=== PATIENT | female | born 1995 | race Caucasian/White ===

== ENCOUNTER 2017-09-09 15:52 | Emergency (ER) | payer BC ==
[2017-09-09] MEDS ORDERED: Sodium Chloride 0.9% 2.5 ML Syringe FLUSH PRN (16:11)
[2017-09-09] MEDS ORDERED: Sodium Chloride 0.9% 10 ML Syringe FLUSH PRN (16:11)
[2017-09-09] MEDS ORDERED: Sodium Chloride 0.9% 1,000 ML IV STA (16:11)
[2017-09-09] MEDS ORDERED: Ondansetron 4 MG/2 ML SDV IVPUSH ONE ×2 (16:11→17:57)
--- NOTE | 2017-09-09 16:21 | EDM.PDOC ---
ED HPI GENERAL MEDICAL PROBLEM - General Chief Complaint: Gastrointestinal Problem Stated Complaint: abdominal pain Time Seen by Provider: 09/09/17 15:55 - History of Present Illness INITIAL COMMENTS - FREE TEXT/NARRATIVE: HISTORY AND PHYSICAL: History of present illness: Patient 21-year-old white female sensory concern of vomiting has been off and on for the last 7-10 days she's also some diarrhea she did see her primary medical doctor and had stool studies done. She's had no fever no chills she had some mild abdominal cramping denies other concern Review of systems: As per history of present illness and below otherwise all systems reviewed and negative. Past medical history: As per history of present illness and as reviewed below otherwise noncontributory. Surgical history: As per history of present illness and as reviewed below otherwise noncontributory. Social history: No reported history of drug or alcohol abuse. Family history: As per history of present illness and as reviewed below otherwise noncontributory. Physical exam: HEENT: Atraumatic, normocephalic, pupils reactive, negative for conjunctival pallor or scleral icterus, mucous membranes dry, throat clear, neck supple, nontender, trachea midline. Lungs: Clear to auscultation, breath sounds equal bilaterally, chest nontender. Heart: S1S2, regular, negative for clicks, rubs, or JVD. Abdomen: Soft, nondistended, nontender. Negative for masses or hepatosplenomegaly. Negative for costovertebral tenderness. Pelvis: Stable nontender. Genitourinary: Deferred. Rectal: Deferred. Extremities: Atraumatic, negative for cords or calf pain. Neurovascular unremarkable. Neuro: Awake, alert, oriented. Cranial nerves II through XII unremarkable. Cerebellum unremarkable. Motor and sensory unremarkable throughout. Exam nonfocal. Diagnostics: CBC CMP amylase lipase hCG UA Therapeutics: Saline 1 L bolus Zofran 4 mg IV Impression: #1 gastroenteritis #2 dehydration Definitive disposition and diagnosis as appropriate pending reevaluation and review of above. Middle Abdomen Pain Score (Numeric/FACES): 5 - Related Data Allergies Allergy/AdvReac Type Severity Reaction Status Date / Time amoxicillin [From Augmentin] Allergy Vomiting Verified 09/09/17 16:01 clavulanic acid Allergy Vomiting Verified 09/09/17 16:01 [From Augmentin] Home Meds: Home Meds Citalopram [Celexa] 20 mg PO DAILY 09/09/17 [History] Past Medical History Psychiatric History: Reports: Anxiety - Past Surgical History GI Surgical History: Reports: Cholecystectomy Social & Family History - Family History Family Medical History: Noncontributory - Tobacco Use Smoking Status *Q: Never Smoker Second Hand Smoke Exposure: No - Caffeine Use Caffeine Use: Reports: Coffee Caffeine Use Comment: 2 cups per day - Recreational Drug Use Recreational Drug Use: No ED ROS GENERAL - Review of Systems Review Of Systems: ROS reveals no pertinent complaints other than HPI. ED EXAM, GENERAL - Physical Exam Exam: See Below (see dictation) Course - Vital Signs Last Recorded V/S: Last Vital Signs Temp 36.1 C 09/09/17 16:01 Pulse 104 H 09/09/17 16:01 Resp 16 09/09/17 16:01 BP 138/81 09/09/17 16:01 Pulse Ox 97 09/09/17 16:01 - Orders/Labs/Meds Orders: Active Orders 24 hr Category Date Time Status Ondansetron [Zofran] Med 09/09/17 17:57 Once 4 mg IVPUSH ONETIME ONE Sodium Chloride 0.9% [Saline Flush] Med 09/09/17 16:11 Active 10 ml FLUSH ASDIRECTED PRN Sodium Chloride 0.9% [Saline Flush] Med 09/09/17 16:11 Active 2.5 ml FLUSH ASDIRECTED PRN Saline Lock Insert [OM.PC] Stat Oth 09/09/17 16:10 Ordered Medication Orders Sodium Chloride (Saline Flush) 10 ml FLUSH ASDIRECTED PRN PRN Reason: Keep Vein Open Last Admin: 09/09/17 16:30 Dose: 10 ml Sodium Chloride (Saline Flush) 2.5 ml FLUSH ASDIRECTED PRN PRN Reason: Keep Vein Open Last Admin: 09/09/17 16:30 Dose: 2.5 ml Labs: Laboratory Tests 09/09/17 09/09/17 09/09/17 Range/Units 16:16 16:16 16:16 WBC 9.22 (4.0-11.0) K/uL RBC 4.46 (4.30-5.90) M/uL Hgb 13.8 (12.0-16.0) g/dL Hct 40.1 (36.0-46.0) % MCV 89.9 (80.0-98.0) fL MCH 30.9 (27.0-32.0) pg MCHC 34.4 (31.0-37.0) g/dL RDW Std Deviation 38.6 (28.0-62.0) fl RDW Coeff of Alice 12 (11.0-15.0) % Plt Count 234 (150-400) K/uL MPV 10.00 (7.40-12.00) fL Neut % (Auto) 80.0 (48.0-80.0) % Lymph % (Auto) 13.6 L (16.0-40.0) % Beauregard % (Auto) 5.1 (0.0-15.0) % Eos % (Auto) 0.9 (0.0-7.0) % Baso % (Auto) 0.4 (0.0-1.5) % Neut # (Auto) 7.4 H (1.4-5.7) K/uL Lymph # (Auto) 1.3 (0.6-2.4) K/uL Beauregard # (Auto) 0.5 (0.0-0.8) K/uL Eos # (Auto) 0.1 (0.0-0.7) K/uL Baso # (Auto) 0.0 (0.0-0.1) K/uL Nucleated RBC % 0.0 /100WBC Nucleated RBCs # 0 K/uL Sodium 137 (136-146) mmol/L Potassium 4.1 (3.5-5.1) mmol/L Chloride 108 (98-110) mmol/L Carbon Dioxide 18 L (21-31) mmol/L BUN 13 (6.0-23.0) mg/dL Creatinine 0.7 (0.6-1.5) mg/dL Est Cr Clr Drug Dosing 98.86 mL/min Estimated GFR (MDRD) > 60.0 ml/min Glucose 99 (60-110) mg/dL Calcium 8.8 (8.8-10.8) mg/dL Total Bilirubin 0.7 (0.1-1.5) mg/dL AST 22 (5-40) IU/L ALT 15 (8-54) IU/L Alkaline Phosphatase 80 (40-150) Total Protein 7.8 (6.0-8.0) g/dL Albumin 4.4 (3.5-5.0) g/dL Globulin 3.4 (2.0-3.5) g/dL Albumin/Globulin Ratio 1.3 (1.3-2.8) Amylase 46 (10-90) U/L Lipase 44 (7-80) U/L HCG, Qual NEGATIVE (NEG) Urine Color Urine Appearance Urine pH (5.0-8.0) Ur Specific Driggs (1.001-1.035) Urine Protein (NEGATIVE) mg/dL Urine Glucose (UA) (NEGATIVE) mg/dL Urine Ketones (NEGATIVE) mg/dL Urine Occult Blood (NEGATIVE) Urine Nitrite (NEGATIVE) Urine Bilirubin (NEGATIVE) Urine Urobilinogen (<2.0) EU/dL Ur Leukocyte Esterase (NEGATIVE) Urine RBC (0-2/HPF) Urine WBC (0-5/HPF) Ur Epithelial Cells (NONE-FEW) Urine Bacteria (NEGATIVE) Urine Mucus (NONE-MOD) 09/09/17 Range/Units 17:05 WBC (4.0-11.0) K/uL RBC (4.30-5.90) M/uL Hgb (12.0-16.0) g/dL Hct (36.0-46.0) % MCV (80.0-98.0) fL MCH (27.0-32.0) pg MCHC (31.0-37.0) g/dL RDW Std Deviation (28.0-62.0) fl RDW Coeff of Alice (11.0-15.0) % Plt Count (150-400) K/uL MPV (7.40-12.00) fL Neut % (Auto) (48.0-80.0) % Lymph % (Auto) (16.0-40.0) % Beauregard % (Auto) (0.0-15.0) % Eos % (Auto) (0.0-7.0) % Baso % (Auto) (0.0-1.5) % Neut # (Auto) (1.4-5.7) K/uL Lymph # (Auto) (0.6-2.4) K/uL Beauregard # (Auto) (0.0-0.8) K/uL Eos # (Auto) (0.0-0.7) K/uL Baso # (Auto) (0.0-0.1) K/uL Nucleated RBC % /100WBC Nucleated RBCs # K/uL Sodium (136-146) mmol/L Potassium (3.5-5.1) mmol/L Chloride (98-110) mmol/L Carbon Dioxide (21-31) mmol/L BUN (6.0-23.0) mg/dL Creatinine (0.6-1.5) mg/dL Est Cr Clr Drug Dosing mL/min Estimated GFR (MDRD) ml/min Glucose (60-110) mg/dL Calcium (8.8-10.8) mg/dL Total Bilirubin (0.1-1.5) mg/dL AST (5-40) IU/L ALT (8-54) IU/L Alkaline Phosphatase (40-150) Total Protein (6.0-8.0) g/dL Albumin (3.5-5.0) g/dL Globulin (2.0-3.5) g/dL Albumin/Globulin Ratio (1.3-2.8) Amylase (10-90) U/L Lipase (7-80) U/L HCG, Qual (NEG) Urine Color YELLOW Urine Appearance SLT CLOUDY Urine pH 6.0 (5.0-8.0) Ur Specific Driggs >= 1.030 (1.001-1.035) Urine Protein NEGATIVE (NEGATIVE) mg/dL Urine Glucose (UA) NEGATIVE (NEGATIVE) mg/dL Urine Ketones NEGATIVE (NEGATIVE) mg/dL Urine Occult Blood TRACE-INTACT (NEGATIVE) Urine Nitrite NEGATIVE (NEGATIVE) Urine Bilirubin NEGATIVE (NEGATIVE) Urine Urobilinogen 0.2 (<2.0) EU/dL Ur Leukocyte Esterase NEGATIVE (NEGATIVE) Urine RBC 0-2 (0-2/HPF) Urine WBC 0-2 (0-5/HPF) Ur Epithelial Cells MODERATE (NONE-FEW) Urine Bacteria 1+ H (NEGATIVE) Urine Mucus HEAVY (NONE-MOD) Meds: Medications Generic Name Dose Route Start Last Admin Trade Name Freq PRN Reason Stop Dose Admin Sodium Chloride 10 ml 09/09/17 16:11 09/09/17 16:30 Saline Flush FLUSH 10 ml ASDIRECTED PRN Administration Keep Vein Open Sodium Chloride 2.5 ml 09/09/17 16:11 09/09/17 16:30 Saline Flush FLUSH 2.5 ml ASDIRECTED PRN Administration Keep Vein Open Discontinued Medications Generic Name Dose Route Start Last Admin Trade Name Heather PRN Reason Stop Dose Admin Sodium Chloride 1,000 mls @ 999 mls/hr 09/09/17 16:11 09/09/17 16:29 Normal Saline IV 09/09/17 17:11 999 mls/hr NOW STA Administration Ondansetron HCl 4 mg 09/09/17 16:11 09/09/17 16:29 Zofran IVPUSH 09/09/17 16:12 4 mg ONETIME ONE Administration Departure - Departure Time of Disposition: 17:58 Disposition: Home, Self-Care 01 Condition: Good Clinical Impression: Gastroenteritis, Dehydration, UTI (urinary tract infection) - Discharge Information Referrals: Huang Santana MD [Primary Care Provider] - Forms: ED Department Discharge Additional Instructions: The following information is given to patients seen in the emergency department who are being discharged to home. This information is to outline your options for follow-up care. We provide all patients seen in our emergency department with a follow-up referral. The need for follow-up, as well as the timing and circumstances, are variable depending upon the specifics of your emergency department visit. If you don't have a primary care physician on staff, we will provide you with a referral. We always advise you to contact your personal physician following an emergency department visit to inform them of the circumstance of the visit and for follow-up with them and/or the need for any referrals to a consulting specialist. The emergency department will also refer you to a specialist when appropriate. This referral assures that you have the opportunity for followup care with a specialist. All of these measure are taken in an effort to provide you with optimal care, which includes your followup. Under all circumstances we always encourage you to contact your private physician who remains a resource for coordinating your care. When calling for followup care, please make the office aware that this follow-up is from your recent emergency room visit. If for any reason you are refused follow-up, please contact the [facility] emergency department at and asked to speak to the emergency department charge nurse. Push fluids Zofran as prescribed Cipro as prescribed follow-up private medical doctor wanted today's return as needed as discussed - My Orders Last 24 Hours: My Active Orders 09/09/17 16:10 Saline Lock Insert [OM.PC] Stat 09/09/17 16:11 Sodium Chloride 0.9% [Saline Flush] 10 ml FLUSH ASDIRECTED PRN Sodium Chloride 0.9% [Saline Flush] 2.5 ml FLUSH ASDIRECTED PRN 09/09/17 17:57 Ondansetron [Zofran] 4 mg IVPUSH ONETIME ONE - Assessment/Plan Last 24 Hours: My Active Orders 09/09/17 16:10 Saline Lock Insert [OM.PC] Stat 09/09/17 16:11 Sodium Chloride 0.9% [Saline Flush] 10 ml FLUSH ASDIRECTED PRN Sodium Chloride 0.9% [Saline Flush] 2.5 ml FLUSH ASDIRECTED PRN 09/09/17 17:57 Ondansetron [Zofran] 4 mg IVPUSH ONETIME ONE
[2017-09-09 16:50] LABS: CHLORIDE,CL 108 mmol/L (98-110); SODIUM,NA 137 mmol/L (136-146)
== END 2017-09-09 18:30 | disposition home or self-care (01) ==
LOC: MW.ED 15:52
DX: K52.9 Noninfective gastroenteritis and colitis, unspecified (principal); E86.0 Dehydration; N39.0 Urinary tract infection, site not specified; F41.9 Anxiety disorder, unspecified; Z79.899 Other long term (current) drug therapy; Z88.1 Allergy status to other antibiotic agents
CPT/HCPCS: 36415; 80053; 81001; 82150; 83690; 84703; 85025; 87804; 96361; 96374; 99284; J2405; J7040; 96375

== ENCOUNTER 2019-03-17 05:02 | Inpatient (IN) | payer BC ==
[2019-03-17] MEDS ORDERED: Misoprostol 200 MCG Tab PO PRN (05:47)
[2019-03-17] MEDS ORDERED: Water For Irrigation,Sterile 1,000 ML Container IRR PRN (05:47)
[2019-03-17] MEDS ORDERED: Lidocaine 1% 50 ML MDV INJECT PRN (05:47)
[2019-03-17] MEDS ORDERED: Methylergonovine 0.2 MG/1 ML Amp IM PRN (05:47)
[2019-03-17] MEDS ORDERED: Carboprost Tromethamine 250 MCG/1 ML Amp IM PRN (05:47)
[2019-03-17] MEDS ORDERED: Tranexamic Acid 1,000 MG in Sodium Chloride 0.9% 100 ML IV PRN (05:47)
[2019-03-17] MEDS ORDERED: Terbutaline 1 MG/ML SDV SUBCUT PRN (05:47)
[2019-03-17] MEDS ORDERED: Ondansetron 4 MG/2 ML SDV IVPUSH PRN (05:47)
[2019-03-17] MEDS ORDERED: Butorphanol 1 MG/ML SDV IVPUSH PRN (05:47)
[2019-03-17] MEDS ORDERED: Sodium Chloride 0.9% 10 ML Syringe FLUSH PRN (05:47)
[2019-03-17] MEDS ORDERED: Sodium Chloride 0.9% 10 ML SDV IV PRN (05:47)
[2019-03-17] MEDS ORDERED: Lactated Ringers 1,000 ML IV SCH (06:00)
[2019-03-17] MEDS ORDERED: Oxytocin/0.9 % Sodium Chloride 30 UNIT/500 ML BAG IV SCH ×2 (06:00)
[2019-03-17] MEDS: Acetaminophen 500 MG Tab PO PRN (07:40)
[2019-03-17] MEDS ORDERED: fentaNYL 100 MCG/2 ML SDV ONE (10:48)
--- NOTE | 2019-03-17 11:25 | PCM.PREANE ---
Preanesthetic Assessment - Anesthesia/Transfusion/Family Hx Anesthesia History: Prior Anesthesia Without Reaction Family History of Anesthesia Reaction: No Intubation History: Unknown - Review of Systems General: No Symptoms Pulmonary: No Symptoms Cardiovascular: No Symptoms Gastrointestinal: No Symptoms Neurological: No Symptoms Other: Reports: None - Physical Assessment Height: 5 ft 2 in Weight: 90.718 kg - Lab Values: Laboratory Last Values WBC 9.74 K/uL (4.0-11.0) 03/17/19 06:00 RBC 3.81 M/uL (4.30-5.90) L 03/17/19 06:00 Hgb 11.7 g/dL (12.0-16.0) L 03/17/19 06:00 Hct 35.2 % (36.0-46.0) L 03/17/19 06:00 MCV 92.4 fL (80.0-98.0) 03/17/19 06:00 MCH 30.7 pg (27.0-32.0) 03/17/19 06:00 MCHC 33.2 g/dL (31.0-37.0) 03/17/19 06:00 RDW Std Deviation 43.3 fl (28.0-62.0) 03/17/19 06:00 RDW Coeff of Alice 13 % (11.0-15.0) 03/17/19 06:00 Plt Count 179 K/uL (150-400) 03/17/19 06:00 MPV 9.60 fL (7.40-12.00) 03/17/19 06:00 Nucleated RBC % 0.0 /100WBC 03/17/19 06:00 Nucleated RBCs # 0 K/uL 03/17/19 06:00 POC Glucose 78 mg/dL (60-110) 03/17/19 10:31 Blood Type A POSITIVE 03/17/19 06:00 Antibody Screen NEGATIVE 03/17/19 06:00 - Allergies Allergies/Adverse Reactions: Allergies Allergy/AdvReac Type Severity Reaction Status Date / Time amoxicillin [From Augmentin] Allergy Vomiting Verified 09/09/17 16:01 amoxicillin trihydrate Allergy Vomiting Verified 08/30/16 14:13 [From Augmentin] clavulanic acid Allergy Vomiting Verified 09/09/17 16:01 [From Augmentin] potassium clavulanate Allergy Vomiting Verified 08/30/16 14:13 [From Augmentin] - Blood Blood Available: No - Anesthesia Plan Pre-Op Medication Ordered: None - Acknowledgements Anesthesia Type Planned: Epidural Pt an Appropriate Candidate for the Planned Anesthesia: Yes Alternatives and Risks of Anesthesia Discussed w Pt/Guardian: Yes Pt/Guardian Understands and Agrees with Anesthesia Plan: Yes PreAnesthesia Questionnaire - Past Health History Medical/Surgical History: Denies Medical/Surgical History Gastrointestinal History: Reports: Other (See Below) Other Gastrointestinal History: ulcerative colitis 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 [No Known Home Meds] 08/30/16 [History] Citalopram [Celexa] 20 mg PO DAILY 09/09/17 [History] - CURRENT (IN HOUSE) MEDS Current Meds: Current Medications Acetaminophen (Tylenol Extra Strength) 1,000 mg PO Q6H PRN PRN Reason: headache Last Admin: 03/17/19 07:40 Dose: 1,000 mg Butorphanol Tartrate (Stadol) 1 mg IVPUSH ASDIRECTED PRN PRN Reason: Pain Last Admin: 03/17/19 10:15 Dose: 1 mg Carboprost Tromethamine (Hemabate Ds) 250 mcg IM ASDIRECTED PRN PRN Reason: Post Hemorrhage Lactated Ringer's (Ringers, Lactated) 1,000 mls @ 150 mls/hr IV ASDIRECTED ANDIE Last Admin: 03/17/19 06:10 Dose: 150 mls/hr Oxytocin/Sodium Chloride (Oxytocin 30 Unit/500 Ml-Ns) 30 unit in 500 mls @ 999 mls/hr IV TITRATE ANDIE Oxytocin/Sodium Chloride (Oxytocin 30 Unit/500 Ml-Ns) 30 unit in 500 mls @ 2 mls/hr IV TITRATE ANDIE; Protocol Last Titration: 03/17/19 09:20 Dose: 8 munits/min, 8 mls/hr Tranexamic Acid 1,000 mg/ (Sodium Chloride) 110 mls @ 660 mls/hr IV ONETIME PRN PRN Reason: Bleeding Lidocaine HCl (Xylocaine 1%) 50 ml INJECT ONETIME PRN PRN Reason: Laceration repair Methylergonovine Maleate (Methergine) 0.2 mg IM ASDIRECTED PRN PRN Reason: Post Hemorrhage Misoprostol (Cytotec) 200 mcg PO ONETIME PRN PRN Reason: Post Hemorrhage Ondansetron HCl (Zofran) 4 mg IVPUSH Q6H PRN PRN Reason: Nausea/Vomiting Sodium Chloride (Saline Flush) 10 ml FLUSH ASDIRECTED PRN PRN Reason: Keep Vein Open Sodium Chloride (Normal Saline) 10 ml IV ASDIRECTED PRN PRN Reason: IV Use Sterile Water (Sterile Water For Irrigation) 1,000 ml IRR ASDIRECTED PRN PRN Reason: delivery Terbutaline Sulfate (Brethine) 0.25 mg SUBCUT ASDIRECTED PRN PRN Reason: Tacysystole Discontinued Medications Fentanyl (Sublimaze) Confirm Administered Dose 100 mcg .ROUTE .STK-MED ONE Stop: 03/17/19 10:49 Fentanyl/Bupivacaine HCl ([id number] 2 Mcg/Ml-0.125%) Confirm Administered Dose 100 mls @ as directed .ROUTE .STK-MED ONE Stop: 03/17/19 10:50
[2019-03-17] MEDS ORDERED: Bisacodyl 10 MG Supp RECTAL PRN (13:39)
[2019-03-17] MEDS ORDERED: Benzocaine/Menthol 20%-0.5% Spray 78 GM Cannister TOP PRN (13:39)
[2019-03-17] MEDS ORDERED: Ibuprofen 400 MG Tab PO PRN (13:39)
[2019-03-17] MEDS ORDERED: oxyCODONE 5 MG Tab PO PRN (13:39)
[2019-03-17] MEDS ORDERED: Aluminum Hydroxide/Magnesium Hydroxide/Simethicone Susp 30 ML Cup PO PRN (13:39)
[2019-03-17] MEDS ORDERED: Witch Hazel Medicated Pads 40/Jar TOP PRN (13:39)
[2019-03-17] MEDS ORDERED: Lanolin 100% Cream 7 GM Tube TOP PRN (13:39)
[2019-03-17] MEDS ORDERED: Acetaminophen 500 MG Tab PO PRN ×2 (13:39)
--- NOTE | 2019-03-17 13:47 | PCM.OPNOTE ---
- General Post-Op/Procedure Note Date of Surgery/Procedure: 03/17/19 Operative Procedure(s): /1st laceration repaired Findings: Viable female APGARs 9, 9 weight 3230gm. Spontaneous delivery intact placenta with 3V cord. Accessory lobe noted with placenta, to path. Pre Op Diagnosis: 39 week IUP. Gestational diabetes. renal unilateral pylectasis Post-Op Diagnosis: Same Anesthesia Technique: Epidural Primary Surgeon: Daksha Grey Pathology: Placenta EBL in mLs: 300 Complications: none known Condition: Good Free Text/Narrative:: Dictation [id number]
--- NOTE | 2019-03-17 14:20 | OR ---
SURGEON: Daksha Grey M.D. DATE OF PROCEDURE: 03/17/2019 PREOPERATIVE DIAGNOSES: 1. 39 weeks' intrauterine . 2. Gestational diabetes. 3. unilateral pyelectasis. POSTOPERATIVE DIAGNOSES: 1. 39 weeks' intrauterine . 2. Gestational diabetes. 3. unilateral pyelectasis. PROCEDURE: Spontaneous vaginal delivery, first-degree laceration repaired. PRIMARY SURGEON: Daksha Grey MD. ANESTHESIA: Epidural. ESTIMATED BLOOD LOSS: 300 mL. FINDINGS: Viable female. scores 9 at 1 minute, 9 at 5 minutes. Weight of 3230 g. Spontaneous delivery, intact placenta, 3-vessel cord. A succenturiate lobe is noted to be present with placental tissue. DISPOSITION: The patient in LDRP, stable. Infant to nursery. PROCEDURE DETAILS: Manas is a 23-year-old G2, P1, at 39 weeks' gestational age, who presents for scheduled induction of labor due to gestational diabetes. On initial exam, the patient was found to be 2 to 3 cm, 60% effaced, -3 station. Was admitted, routine labs drawn, IV hydration initiated. Initial glucose was 93. The patient responded nicely to Pitocin and shortly before 9 a.m. underwent amniotomy as she is group B strep negative. She is found to be 3 cm, 70% effaced, -2 station. Clear fluid was returned. The patient became increasingly uncomfortable and was progressing more rapidly at this point, therefore, underwent regional anesthesia in the form of epidural, became more comfortable. Shortly after noon, she was found to be 8 to 9 cm, 100% effaced, +1 station, feeling some pressure and within the hour progressed to complete, 100% effaced, + 3 station. I was called for delivery. Upon my arrival, the patient was placed in modified dorsal lithotomy position, was prepped and draped in the usual aseptic manner. With the next 3 contractions, was able to push, deliver infant's head atraumatically and spontaneously, followed by anterior shoulder, posterior shoulder, and remaining body without difficulty. The infant's oropharynx and nares were bulb suctioned. Infant was handed off to her mother with attending nursing staff at the side. After delay, cord was clamped x2 and cut. Cord arterial, cord venous, cord blood sampling obtained. Light suprapubic pressure was applied while the placenta was delivered spontaneously intact. The succenturiate lobe was noted to be present within this placental tissue. Vigorous fundal uterine massage was then applied while 30 units of Pitocin was delivered in 500 mL of IV fluid. Upon inspection of cervix, vaginal sidewalls, and perineum, they were was found to be intact other than a first-degree right rodrigo-clitoral laceration. Was repaired using 4-0 Vicryl on a V20 needle. Uterus remained firm. Hemostasis evident. Sponge count, instrument count, and needle count were correct. The patient will remain in LDRP, infant to nursery. KEATON / CARLOS /[id number] JAMEY
[2019-03-17] MEDS: Docusate Sodium 100 MG Cap PO PRN (15:24)
[2019-03-17] MEDS: Ibuprofen 800 MG Tab PO PRN ×2 (15:24→23:31)
[2019-03-18] MEDS: Acetaminophen 500 MG Tab PO PRN (05:25)
--- NOTE | 2019-03-18 08:55 | PCM48HPAN ---
Post Anesthesia Note - EVALUATION WITHIN 48HRS OF ANESTHETIC Vital Signs in Normal Range: Yes Patient Participated in Evaluation: Yes Respiratory Function Stable: Yes Airway Patent: Yes Cardiovascular Function Stable: Yes Hydration Status Stable: Yes Pain Control Satisfactory: Yes Nausea and Vomiting Control Satisfactory: Yes Mental Status Recovered: Yes Pulse Rate: 71 SaO2: 97 Resp Rate: 17 Temperature: 97.8 F Blood Pressure: 104/61
--- NOTE | 2019-03-18 10:13 | PCM.PNPP ---
- General Info Date of Service: 03/18/19 Functional Status: Reports: Pain Controlled, Tolerating Diet, Ambulating, Urinating - Review of Systems General: Reports: Fatigue. Denies: Fever, Weakness Pulmonary: Denies: Shortness of Breath Cardiovascular: Denies: Chest Pain, Palpitations, Lightheadedness Gastrointestinal: Denies: Abdominal Pain, Nausea, Vomiting Genitourinary: Denies: Flank Pain Musculoskeletal: Reports: No Symptoms Skin: Reports: No Symptoms Neurological: Reports: No Symptoms Psychiatric: Reports: No Symptoms - General Info Date of Service: 03/18/19 - Patient Data Vital Signs - Most Recent: Last Vital Signs Temp 36.6 C 03/18/19 08:55 Pulse 71 03/18/19 08:55 Resp 17 03/18/19 08:55 BP 104/61 03/18/19 08:55 Pulse Ox 97 03/18/19 08:55 Weight - Most Recent: 90.718 kg Lab Results - Last 24 Hours: Laboratory Results - last 24 hr 03/17/19 03/17/19 03/17/19 Range/Units 06:09 10:31 13:22 Hgb (12.0-16.0) g/dL Hct (36.0-46.0) % Cord ABG pH 7.320 (7.18-7.38) Cord ABG Base Excess -7 (-10--2) Cord VBG pH 7.328 (7.25-7.45) Cord VBG Base Excess -7 (-10--2) POC Glucose 96 78 (60-110) mg/dL Fasting Glucose (74-106) mg/dL 03/18/19 03/18/19 Range/Units 05:49 05:49 Hgb 11.6 L (12.0-16.0) g/dL Hct 35.1 L (36.0-46.0) % Cord ABG pH (7.18-7.38) Cord ABG Base Excess (-10--2) Cord VBG pH (7.25-7.45) Cord VBG Base Excess (-10--2) POC Glucose (60-110) mg/dL Fasting Glucose 83 (74-106) mg/dL Med Orders - Current: Current Medications Acetaminophen (Tylenol Extra Strength) 1,000 mg PO Q6H PRN PRN Reason: headache Last Admin: 03/18/19 05:25 Dose: 1,000 mg Acetaminophen (Tylenol Extra Strength) 500 mg PO Q4H PRN PRN Reason: Pain Acetaminophen (Tylenol Extra Strength) 1,000 mg PO Q4H PRN PRN Reason: Pain Last Admin: 03/17/19 18:19 Dose: 1,000 mg Al Hydroxide/Mg Hydroxide (Mag-Al Plus) 30 ml PO Q8H PRN PRN Reason: Heartburn Benzocaine/Menthol (Dermoplast Pain Relief 20%-0.5% [place]) 78 gm TOP ASDIRECTED PRN PRN Reason: Perineal Comfort Measure Last Admin: 03/17/19 15:24 Dose: 1 spray Bisacodyl (Dulcolax) 10 mg RECTAL ONETIME PRN PRN Reason: Constipation Carboprost Tromethamine (Hemabate Ds) 250 mcg IM ASDIRECTED PRN PRN Reason: Post Hemorrhage Docusate Sodium (Colace) 100 mg PO BID PRN PRN Reason: Constipation Last Admin: 03/17/19 15:24 Dose: 100 mg Emollient Ointment (Lansinoh Hpa) 0 gm TOP ASDIRECTED PRN PRN Reason: Sore Nipples Last Admin: 03/17/19 15:23 Dose: 1 applic Lactated Ringer's (Ringers, Lactated) 1,000 mls @ 150 mls/hr IV ASDIRECTED ANDIE Last Admin: 03/17/19 06:10 Dose: 150 mls/hr Oxytocin/Sodium Chloride (Oxytocin 30 Unit/500 Ml-Ns) 30 unit in 500 mls @ 999 mls/hr IV TITRATE ANDIE Oxytocin/Sodium Chloride (Oxytocin 30 Unit/500 Ml-Ns) 30 unit in 500 mls @ 2 mls/hr IV TITRATE ANDIE; Protocol Last Titration: 03/17/19 11:25 Dose: 10 munits/min, 10 mls/hr Tranexamic Acid 1,000 mg/ (Sodium Chloride) 110 mls @ 660 mls/hr IV ONETIME PRN PRN Reason: Bleeding Ibuprofen (Motrin) 400 mg PO Q4H PRN PRN Reason: Pain Ibuprofen (Motrin) 800 mg PO Q6H PRN PRN Reason: Pain Last Admin: 03/17/19 23:31 Dose: 800 mg Methylergonovine Maleate (Methergine) 0.2 mg IM ASDIRECTED PRN PRN Reason: Post Hemorrhage Ondansetron HCl (Zofran) 4 mg IVPUSH Q6H PRN PRN Reason: Nausea/Vomiting Oxycodone HCl (Oxycodone) 5 mg PO Q2H PRN PRN Reason: Pain Sodium Chloride (Saline Flush) 10 ml FLUSH ASDIRECTED PRN PRN Reason: Keep Vein Open Sodium Chloride (Normal Saline) 10 ml IV ASDIRECTED PRN PRN Reason: IV Use Sterile Water (Sterile Water For Irrigation) 1,000 ml IRR ASDIRECTED PRN PRN Reason: delivery Witeloina Luther (Tucks) 1 pad TOP ASDIRECTED PRN PRN Reason: comfort care Last Admin: 03/17/19 15:25 Dose: 1 disk Discontinued Medications Butorphanol Tartrate (Stadol) 1 mg IVPUSH ASDIRECTED PRN PRN Reason: Pain Last Admin: 03/17/19 10:15 Dose: 1 mg Fentanyl (Sublimaze) Confirm Administered Dose 100 mcg .ROUTE .STK-MED ONE Stop: 03/17/19 10:49 Fentanyl/Bupivacaine HCl (Hbybjryu-Wkwtr-Bm 2 Mcg/Ml-0.125%) Confirm Administered Dose 100 mls @ as directed .ROUTE .STK-MED ONE Stop: 03/17/19 10:50 Lidocaine HCl (Xylocaine 1%) 50 ml INJECT ONETIME PRN PRN Reason: Laceration repair Misoprostol (Cytotec) 200 mcg PO ONETIME PRN PRN Reason: Post Hemorrhage Terbutaline Sulfate (Brethine) 0.25 mg SUBCUT ASDIRECTED PRN PRN Reason: Tacysystole - Interaction Support Person: - Recovery Exam Fundal Tone: Firm Fundal Level: At Umbilicus Fundal Placement: Midline Lochia Amount: Small Lochia Color: Rubra/Red Perineum Description: Intact, Minimal Bruising/Swelling Episiotomy/Laceration: Approximated Bladder Status: Voiding Urinary Elimination: Voided - Exam General: Alert, Oriented Lungs: Normal Respiratory Effort Cardiovascular: Regular Rate, Regular Rhythm GI/Abdominal Exam: Soft, Non-Tender Extremities: Pedal Edema (trace). No: Adán's Sign Skin: Warm, Dry, Intact Neurological: No New Focal Deficit Psy/Mental Status: Alert, Normal Affect, Normal Mood - Problem List & Annotations (1) Vaginal delivery SNOMED Code(s): 351864887 Code(s): O80 - ENCOUNTER FOR FULL-TERM UNCOMPLICATED DELIVERY Status: Acute Current Visit: Yes - Problem List Review Problem List Initiated/Reviewed/Updated: Yes - My Orders Last 24 Hours: My Active Orders 03/17/19 13:39 Patient Status [ADT] Routine May Shower [RC] ASDIRECTED Up ad Lindy [RC] ASDIRECTED Vital Signs [RC] PER UNIT ROUTINE Acetaminophen [Tylenol Extra Strength] 1,000 mg PO Q4H PRN Acetaminophen [Tylenol Extra Strength] 500 mg PO Q4H PRN Alum Hydrox/Mag Hydrox/Simeth [Mag-Al Plus] 30 ml PO Q8H PRN Benzocaine/Menthol [Dermoplast Pain Relief 20%-0.5% [place]] 78 gm TOP ASDIRECTED PRN Bisacodyl [Dulcolax] 10 mg RECTAL ONETIME PRN Docusate Sodium [Colace] 100 mg PO BID PRN Ibuprofen [Motrin] 400 mg PO Q4H PRN Ibuprofen [Motrin] 800 mg PO Q6H PRN Lanolin [Lansinoh HPA] See Dose Instructions TOP ASDIRECTED PRN Witch Homa [Tucks] 1 pad TOP ASDIRECTED PRN oxyCODONE 5 mg PO Q2H PRN Assess Lochia [WOMSER] Per Unit Routine Assess Uterine Involution [WOMSER] Per Unit Routine Peripheral IV Discontinue [OM.PC] Routine 03/17/19 13:40 Ice Therapy [OM.PC] Per Unit Routine Perineal Care [OM.PC] Per Unit Routine Sitz Bath [OM.PC] Per Unit Routine 03/17/19 Lunch Regular Diet [DIET] 03/18/19 10:11 Ready for Discharge [RC] PER UNIT ROUTINE - Assessment Assessment:: PPD 1 status post Gestational diabetes, normal fasting glucose - Plan Plan:: Patient is doing well and would like to go home today. Discharge to home. Follow up at [facility] 6 weeks. Needs 75 gm GTT at PP visit. Discharge instructions reviewed.
[2019-03-18] MEDS: Ibuprofen 800 MG Tab PO PRN (12:09)
[2019-03-18] MEDS: Docusate Sodium 100 MG Cap PO PRN (12:12)
== END 2019-03-18 15:58 | disposition home or self-care (01) | DRG 560 ==
LOC: MW.OBCHECK 05:02 → MW.OB 05:03 → MW.OBCHECK 05:47 → OBSVTOIN 13:22 → MW.OB 18:30
PROVIDERS: ADMIT Obstetrics & Gynecology; ATTEND Obstetrics & Gynecology
PROC: 10E0XZZ Delivery of Products of Conception, External Approach (ICD-10-PCS; principal; 2019-03-17)
PROC: 0HQ9XZZ Repair Perineum Skin, External Approach (ICD-10-PCS; 2019-03-17)
DX: O24.410 Gestational diabetes mellitus in pregnancy, diet controlled (principal); O99.344 Other mental disorders complicating childbirth; F41.9 Anxiety disorder, unspecified; O70.0 First degree perineal laceration during delivery; Z37.0 Single live birth; Z3A.39 39 weeks gestation of pregnancy
CPT/HCPCS: 36415; 59025; 59409; 82803; 82947; 82962; 85014; 85018; 85027; 86850; 86900; 86901; A9270-GY; J0595; J2590; J3010; J7120

== ENCOUNTER 2019-06-15 19:42 | Emergency (ER) | payer BC ==
--- NOTE | 2019-06-15 20:46 | EDM.PDOC ---
ED HPI GENERAL MEDICAL PROBLEM - General Chief Complaint: Lower Extremity Injury/Pain Stated Complaint: PT HURT LT LEG Time Seen by Provider: 06/15/19 20:24 - History of Present Illness INITIAL COMMENTS - FREE TEXT/NARRATIVE: HISTORY AND PHYSICAL: History of present illness: The patient is a 23-year-old female who presents with complaints of pain to her lateral left ankle after she rolled it getting out of a car. She did not fall down and hit her head pass out or blackout and has no head neck or back pain and only complains of pain and swelling at the left ankle. She took some ibuprofen at home prior to coming here. She has no proximal leg or knee pain and no hip pain on the left. She has no numbness or tingling in the foot. Her only breast-feeding. Review of systems: As per history of present illness and below otherwise all systems reviewed and negative. Past medical history: As per history of present illness and as reviewed below otherwise noncontributory. Surgical history: As per history of present illness and as reviewed below otherwise noncontributory. Social history: No reported history of drug or alcohol abuse. Family history: As per history of present illness and as reviewed below otherwise noncontributory. Physical exam: General: Well developed well-nourished mildly overweight female who is nontoxic and vital signs are noted by me HEENT: Atraumatic, normocephalic, negative for conjunctival pallor or scleral icterus, mucous membranes moist, throat clear, neck supple, nontender, trachea midline. There is no scalp defects or deformities and no midline step-offs tenderness defects of the cervical spine Lungs: Clear to auscultation, breath sounds equal bilaterally, chest nontender. Heart: S1S2, regular rate and rhythm no overt murmurs Abdomen: Deferred Pelvis: Stable nontender. No lateral hip tenderness on the left Genitourinary: Deferred. Rectal: Deferred. Extremities: Atraumatic, range of motion of all extremities with the exception of the left ankle with there is soft tissue swelling and tenderness at the lateral malleolus. There is no distal foot metatarsal toe calcaneus or talus tenderness and no medial malleolus tenderness. There is no proximal tib-fib knee thigh or hip pain. Neurovascular unremarkable. Neuro: Awake, alert, oriented. Cranial nerves II through XII unremarkable. Cerebellum unremarkable. Motor and sensory unremarkable throughout. Exam nonfocal. Diagnostics: X-ray left ankle Therapeutics: Ice pack ortho boot crutches She took Motrin prior to coming to the ED Impression: left Ankle injury Definitive disposition and diagnosis as appropriate pending reevaluation and review of above. Left Ankle Pain Score (Numeric/FACES): 6 - Related Data Allergies Allergy/AdvReac Type Severity Reaction Status Date / Time amoxicillin [From Augmentin] Allergy Vomiting Verified 06/15/19 20:26 amoxicillin trihydrate Allergy Vomiting Verified 06/15/19 20:26 [From Augmentin] clavulanic acid Allergy Vomiting Verified 06/15/19 20:26 [From Augmentin] potassium clavulanate Allergy Vomiting Verified 06/15/19 20:26 [From Augmentin] Home Meds: Home Meds . 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: Psychiatric History: Reports: Anxiety Endocrine/Metabolic History: Reports: Diabetes, Gestational Hematologic History: Reports: Anemia - Infectious Disease History Infectious Disease History: Reports: Chicken Pox - Past Surgical History GI Surgical History: Reports: Cholecystectomy Social & Family History - Family History Family Medical History: Noncontributory Cardiac: Reports: Hypertension : Reports: Renal Calculus Musculoskeletal: Reports: Arthritis Endocrine/Metabolic: Reports: Diabetes, type II Oncologic: Reports: Skin - Tobacco Use Smoking Status *Q: Never Smoker Second Hand Smoke Exposure: No - Caffeine Use Caffeine Use: Reports: Coffee Caffeine Use Comment: 2 cups per day - Recreational Drug Use Recreational Drug Use: No Review of Systems - Review of Systems Review Of Systems: ROS reveals no pertinent complaints other than HPI. ED EXAM, GENERAL - Physical Exam Exam: See Below (See dictation) Course - Vital Signs Last Recorded V/S: Last Vital Signs Temp 36.1 C 06/15/19 20:26 Pulse 80 06/15/19 20:26 Resp 16 06/15/19 20:26 BP 103/65 06/15/19 20:26 Pulse Ox 97 06/15/19 20:26 - Orders/Labs/Meds Orders: Active Orders 24 hr Category Date Time Status DME for Discharge [COMM] Stat Oth 06/15/19 22:05 Ordered Departure - Departure Time of Disposition: 22:05 Disposition: Home, Self-Care 01 Condition: Good Clinical Impression: Ankle injury Qualifiers: Encounter type: initial encounter Laterality: left Qualified Code(s): S99.912A - Unspecified injury of left ankle, initial encounter - Discharge Information Referrals: Huang Santana MD [Primary Care Provider] - Forms: ED Department Discharge Additional Instructions: The following information is given to patients seen in the emergency department who are being discharged to home. This information is to outline your options for follow-up care. We provide all patients seen in our emergency department with a follow-up referral. The need for follow-up, as well as the timing and circumstances, are variable depending upon the specifics of your emergency department visit. If you don't have a primary care physician on staff, we will provide you with a referral. We always advise you to contact your personal physician following an emergency department visit to inform them of the circumstance of the visit and for follow-up with them and/or the need for any referrals to a consulting specialist. The emergency department will also refer you to a specialist when appropriate. This referral assures that you have the opportunity for followup care with a specialist. All of these measure are taken in an effort to provide you with optimal care, which includes your followup. Under all circumstances we always encourage you to contact your private physician who remains a resource for coordinating your care. When calling for followup care, please make the office aware that this follow-up is from your recent emergency room visit. If for any reason you are refused follow-up, please contact the [facility] emergency department at and ask to speak to the emergency department charge nurse. Dr Garcia, Orthopedist [facility] [address] [place] [address] Dr Morrow - Dr Romero - Dr Shaikh [facility] [address] [place] [address] [facility] [address] [place] [address] Ice and elevate the area and where the ortho boot your given and use crutches until you're followed up in the clinic. Please call and schedule a follow-up appointment with an intelligence specialist using resources given to above as we no longer have orthopedics here at our clinic here continue use over-the- counter ibuprofen for pain management - My Orders Last 24 Hours: My Active Orders 06/15/19 22:05 DME for Discharge [COMM] Stat - Assessment/Plan Last 24 Hours: My Active Orders 06/15/19 22:05 DME for Discharge [COMM] Stat
--- NOTE | 2019-06-15 21:19 | CR ---
Indication: Injury and pain Technique: Left ankle 3 views. Comparison: None Findings: Bones: Alignment is normal. No fractures or bone lesions. Joint spaces: Unremarkable. Soft tissues: Unremarkable. Impression: No sign of acute injury. Dictated by Tang James MD @ Jun 15 2019 9:15PM Signed by Dr. Tang James @ Jun 15 2019 9:18PM
== END 2019-06-15 22:17 | disposition home or self-care (01) ==
LOC: MW.ED 19:42
DX: S99.912A Unspecified injury of left ankle, initial encounter (principal); Z88.0 Allergy status to penicillin; X50.1XXA Overexertion from prolonged static or awkward postures, initial encounter; Y92.810 Car as the place of occurrence of the external cause
CPT/HCPCS: 73610-26-LT; 73610-LT; 99283-25